=== PATIENT | male | born 2000 | race Caucasian/White ===

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

== ENCOUNTER → 2019-02-28 14:35 | Outpatient (CLI) | payer BC, SELFPAY ==
[2019-02-28 11:48] VITALS: BMI 32.3
== END ==
PROVIDERS: Family Provider Family Medicine; PCP Family Medicine; Referring Provider Physician Assistant Medical; Visit Provider Physician Assistant Medical
DX: J02.9 Acute pharyngitis, unspecified (principal)
CPT/HCPCS: 87070

== ENCOUNTER 2019-12-08 11:51 | Emergency (ER) | payer BC, SELFPAY ==
[2019-02-28 11:48] VITALS: BMI 32.3
[2019-12-08 11:52] VITALS: BP 138/78; PULSE 88; RESP 18; TEMP 36.6; O2SAT 95; BMI 32.5
--- NOTE | 2019-12-08 12:13 | ED.DCSUM_ITS ---
- ER Visit Summary Date of Service: 12/08/19 Chief Complaint: Puncture wound right foot History of Present Illness: The patient is a 19 M who presents with a puncture wound to his right foot that occurred today. Patient states he stepped on a nail. Patient states the nail went through his shoe and into his foot. Patient describes the pain as dull and throbbing. Patient states pain is worse with weightbearing and ambulation. Patient denies any paresthesias or weakness. Patient is unsure of his last tetanus shot. Mother thinks that it was while he was in school. Patient denies any fevers or chills. Patient denies any discharge or drainage. Patient states the bleeding stopped after a few minutes. Physical Examination: Vital signs are stable. Patient is afebrile. Patient is in no acute distress. Skin is warm and dry. There is a puncture wound on the plantar aspect of the right foot. There is some dried blood around this. There is minimal tenderness. There is no bony crepitance or step-off. There is good range of motion. Pedal pulses are equal bilaterally. Sensation was intact light touch in all digits. Capillary refill was less than 2 seconds in all digits. Test Results: X-rays of the right foot were obtained for possible foreign body. There is no acute process noted. This was interpreted by the radiologist and myself. Emergency Department Course and Treatment: Patient was given a tetanus booster. Patient was given a dose of Cipro here. Patient was given a prescription for Cipro. The wound was cleaned and dressed with bacitracin dressing. Patient was instructed to follow-up with his primary care physician in 5 to 7 days. Patient understood and was agreeable with the plan. All questions were answered. Disposition: Discharge home Impression: Puncture wound right foot This note was generated with [employer] dictation software. It may contain incorrect words, spelling, and punctuation that were not noted in review of the chart prior to signing ED Disposition - Plan for ED Patient: Disposition: Home or Assisted Living Diagnosis: Puncture wound of right foot Instructions: ED Wound Puncture Foot Prescriptions: Ciprofloxacin [Cipro] 500 mg PO BID #20 tab Prescription Printed Referrals: Monique Valentino MD [Primary Care Provider] - 5-7 Days
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
[2019-12-08] MEDS: Diphth,Pertuss(Acell),Tet Vac 0.5 ML Vial IM (12:26)
[2019-12-08] MEDS: Ciprofloxacin 500 MG Tablet PO (12:27)
== END 2019-12-08 13:19 | disposition home or self-care (01) ==
PROVIDERS: Emergency Provider Emergency Medicine; PCP Family Medicine
DX: S91.331A Puncture wound without foreign body, right foot, initial encounter (principal); W45.0XXA Nail entering through skin, initial encounter; Y93.9 Activity, unspecified; Y92.9 Unspecified place or not applicable; Y99.9 Unspecified external cause status; Z23 Encounter for immunization; Z72.0 Tobacco use
CPT/HCPCS: 73630; 90471; 90715; 99283

== ENCOUNTER → 2024-04-03 | Outpatient (CLI) | payer OTHER, SELFPAY ==
[2024-04-03 14:48] LABS: Absolute Lymphocyte Count 3.16 X10^3/uL (0.83-4.51); Absolute Neutrophil Count 5.3 X10^3/uL (2.0-7.7); Eosinophil# 1.12 X10^3/uL; Eosinophils% 10.9 % (0-5); Hemoglobin 15.7 g/dL (13.0-16.5); Lymphocyte # 3.16 X10^3/ul (0.83-4.51); Lymphocyte % 30.7 % (19-41); Mean Corp Hgb Conc 32.7 g/dL (32-36); Mean Corpuscular Hgb 27.3 pg (27.0-32.0); Mean Corpuscular Volume 83.5 fL (80-94); Mean Platelet Vol. 10.5 fl (6.2-12.0); Monocyte# 0.58 X10^3/uL; Monocyte% 5.6 % (0-10); NRBC Flagged by Analyzer 0 % (0-5); Neutrophil # 5.31 X10^3/uL (2.7-7.7); Neutrophil % 51.5 % (47-70); Platelet Count 321 K/mm3 (150-450); RBC Distribution Width CV 12.8 % (11.6-14.6); RBC Distribution Width SD 38.5 fl (35.1-43.9); Red Blood Count 5.75 M/mm3 (4.6-6.2); White Blood Count 10.3 K/mm3 (4.4-11.0)
[2024-04-03 15:38] LABS: AST(SGOT) 14 U/L (15-37); Alanine Aminotransfer ALT/SGPT 50 U/L (16-61); Albumin, Serum 3.7 g/dL (3.2-5.0); Alkaline Phosphatase 80 U/L (45-117); Anion Gap 2 (5-15); BUN 10 mg/dL (7-18); BUN/Creat Ratio 10.6 RATIO (10-20); Chloride 108 mmol/L (98-107); Cholesterol 177 mg/dL (200); Creatinine, Serum 0.94 mg/dL (0.70-1.30); EST Glomerular Filtration Rate 104 mL/min (>60); Est Glom Filt Rate - Afr Amer 126 mL/min (>60); Globulin 3.6 g/dL (2.2-4.2); Glucose 91 mg/dL (74-106); High Density Lipoprotein 33 mg/dL; Potassium 4.1 mmol/L (3.5-5.1); Protein, Total 7.3 g/dL (6.4-8.2); Sodium Level 141 mmol/L (136-145); Triglycerides 164 mg/dL; Very Low Density Lipoprotein 33 mg/dL (5-40)
== END | disposition home or self-care (01) ==
LOC: LAB 13:21
PROVIDERS: PCP Family Medicine; Referring Provider Family Medicine; Visit Provider Family Medicine
DX: Z00.00 Encounter for general adult medical examination without abnormal findings (principal); F17.200 Nicotine dependence, unspecified, uncomplicated; F32.A Depression, unspecified
CPT/HCPCS: 36415; 80053; 80061; 85025